=== PATIENT | female | born 1965 | race Caucasian/White ===

== ENCOUNTER 2016-09-26 11:11 | Day surgery (SDC) | payer OTHER ==
[2016-09-21 11:33] VITALS: BMI 26.2
[2016-09-26] MEDS ORDERED: PROPOFOL 20 ML ONE (11:14)
[2016-09-26 13:55] VITALS: TEMP 97.7
[2016-09-26 14:01] VITALS: BP 138/88; PULSE 74
--- NOTE | 2016-09-27 10:29 | PATH ---
Surgical Pathology Report Patient Name: LOWELL SOLITARIO [facility]. Rec. #: [id number] /Age/Gender: 1965 (Age: 51) / F Account: [id number] Location: [facility] AMBUL[facility] Taken: 09/26/2016 Received: 09/26/2016 Reported: 09/27/2016 Physicians: Sebastián Danielle M.D. Specimen(s) Received A: BX DUODENUM B: BX ANTRUM Clinical History Gastritis Rule out celiac disease, duodenitis, duodenal erosions Final Diagnosis A. DUODENUM, BIOPSY: DUODENAL MUCOSA WITH NO PATHOLOGIC CHANGES. NO HISTOLOGIC EVIDENCE OF GLUTEN SENSITIVE ENTEROPATHY (CELIAC SPRUE) IDENTIFIED. B. STOMACH, ANTRUM, BIOPSY: MILD CHRONIC GASTRITIS. IMMUNOSTAIN FOR H. PYLORI IS NEGATIVE. Electronically Signed Nicolas Grimes M.D. Gross Description A. Received in formalin, labeled "duodenum" are 2 padilla, irregular portions of soft tissue measuring 0.3 and 0.5 cm. in greatest dimension. The specimens are submitted in toto in one cassette. B. Received in formalin, labeled "antrum" are 2 padilla, irregular portions of soft tissue averaging 0.4 cm. in greatest dimension. The specimens are submitted in toto in one cassette. 09/26/201609/26/2016
== END 2016-09-26 13:05 | disposition home or self-care (01) ==
LOC: FASU 11:11
PROVIDERS: ATTEND Internal Medicine Gastroenterology
PROC: 0DB98ZX Excision of Duodenum, Via Natural or Artificial Opening Endoscopic, Diagnostic (ICD-10-PCS; principal; 2016-09-26 12:05)
PROC: 0DB68ZX Excision of Stomach, Via Natural or Artificial Opening Endoscopic, Diagnostic (ICD-10-PCS; 2016-09-26 12:05)
DX: K29.50 Unspecified chronic gastritis without bleeding (principal); K29.80 Duodenitis without bleeding
CPT/HCPCS: 88305-TC; 88342-TC